=== PATIENT | female | born 1945 | race Caucasian/White ===

== ENCOUNTER 2019-09-29 00:52 | Inpatient (IN) | payer MEDICARE ==
[2019-09-29 01:43] LABS: ABSOLUTE EOSINOPHILS # (AUTO) 0.3 10^3/uL (0.0-0.6); ABSOLUTE NEUT (AUTO) 4.3 10^3/uL (1.7-8.2); TOTAL CELLS COUNTED % (AUTO) 100 %; WHITE BLOOD COUNT 6.3 10^3/uL (4.0-10.5)
[2019-09-29 01:48] LABS: ABSOLUTE LYMPHOCYTES (AUTO) 0.9 10^3/uL (0.5-4.7); ABSOLUTE MONOCYTES (AUTO) 0.7 10^3/uL (0.1-1.4); BASOPHILS % (AUTO) 0.6 % (0-2); EOSINOPHILS % (AUTO) 5.5 % (0-6); HEMATOCRIT 34.6 % (36.0-47.0); HEMOGLOBIN 11.7 g/dL (12.0-15.5); LYMPHOCYTES % (AUTO) 14.3 % (13-45); MEAN CORPUSCULAR HEMOGLOBIN 27.1 pg (27.0-33.4); MEAN CORPUSCULAR HGB CONC 33.9 g/dL (32.0-36.0); MEAN CORPUSCULAR VOLUME 80 fl (80-97); MONOCYTES % (AUTO) 11.8 % (3-13); RED BLOOD COUNT 4.32 10^6/uL (3.72-5.28); RED CELL DISTRIBUTION WIDTH 14.4 % (11.5-14.0); SEGMENTED NEUTROPHILS % (AUTO) 67.8 % (42-78)
[2019-09-29 01:51] LABS: ALKALINE PHOSPHATASE 69 U/L (38-126); ANION GAP 9 (5-19); ASPARTATE AMINO TRANSFERASE 39 U/L (14-36); BILIRUBIN,DIRECT 0.2 mg/dL (0.0-0.4); BILIRUBIN,TOTAL 0.6 mg/dL (0.2-1.3); BLOOD UREA NITROGEN 13 mg/dL (7-20); CALCIUM 9.6 mg/dL (8.4-10.2); CARBON DIOXIDE 24 mmol/L (22-30); CHLORIDE 106 mmol/L (98-107); CREATINE KINASE 39 U/L (30-135); GLUCOSE 123 mg/dL (75-110); POTASSIUM 3.8 mmol/L (3.6-5.0); TOTAL PROTEIN 6.9 g/dL (6.3-8.2)
--- NOTE | 2019-09-29 02:03 | ER Document Report ---
ED General - General Chief Complaint: Irregular Pulse Stated Complaint: CHEST PAIN TRAVEL OUTSIDE OF THE [place] IN LAST 30 DAYS: No - HPI Onset/Duration: Sudden Quality of pain: Achy Severity: Moderate Pain Level: 4 Context: 74 year old female with h/o htn, hld, hypothyroidism and multiple cerebral anneursyms for which she has been treated with coils at [place] is here via EMS after waking up at 2345 with chest pain and sweating and feeling her heart racing. No fever or chills. No recent illness. Chest hurt in center and right chest and right shoulder/ arm was hurting. She was found to be in a fib by ems and they administered cardizem and aspirin en route to the ed. She tells me she has no further chest pain and feels better. Associated symptoms: None Exacerbated by: Denies Relieved by: Denies - Related Data Allergies/Adverse Reactions: Penicillins Allergy (Verified 09/29/19 01:41) Sulfa (Sulfonamide Antibiotics) Allergy (Verified 09/29/19 01:41) vancomycin Allergy (Verified 09/29/19 06:52) Home Medications: AMLODIPINE. METOPROPOL. SYNTHROID. LIVALO. RANITIDINE. BRILINTA Past Medical History - Social History Smoking Status: Former Smoker Family History: Reviewed & Not Pertinent Patient has suicidal ideation: No Patient has homicidal ideation: No - Past Medical History Cardiac Medical History: Reports: Hx Hypercholesterolemia, Hx Hypertension Past Surgical History: Reports: Hx Neurologic Surgery Review of Systems - Review of Systems Constitutional: No symptoms reported EENT: No symptoms reported Cardiovascular: See HPI Respiratory: See HPI Gastrointestinal: No symptoms reported Genitourinary: No symptoms reported Female Genitourinary: No symptoms reported Musculoskeletal: No symptoms reported Skin: No symptoms reported Hematologic/Lymphatic: No symptoms reported Neurological/Psychological: No symptoms reported Physical Exam - Vital signs Vitals: Pulse Ox 94 09/29/19 00:55 Interpretation: Normal - General General appearance: Appears well, Alert - HEENT Head: Normocephalic, Atraumatic Eyes: Normal Pupils: PERRL - Respiratory Respiratory status: No respiratory distress Chest status: Nontender Breath sounds: Normal Chest palpation: Normal - Cardiovascular Rhythm: Irregularly irregular Heart sounds: Normal auscultation Murmur: No - Abdominal Inspection: Normal Distension: No distension Bowel sounds: Normal Tenderness: Nontender Organomegaly: No organomegaly - Back Back: Normal, Nontender - Extremities General upper extremity: Normal inspection, Nontender, Normal color, Normal ROM, Normal temperature General lower extremity: Normal inspection, Nontender, Normal color, Normal ROM, Normal temperature, Normal weight bearing. No: Jamila's sign - Neurological Neuro grossly intact: Yes Cognition: Normal Orientation: AAOx4 Wade Coma Scale Eye Opening: Spontaneous Case Coma Scale Verbal: Oriented Wade Coma Scale Motor: Obeys Commands Wade Coma Scale Total: 15 Speech: Normal Motor strength normal: LUE, RUE, LLE, RLE Sensory: Normal - Psychological Associated symptoms: Normal affect, Normal mood - Skin Skin Temperature: Warm Skin Moisture: Dry Skin Color: Normal Course - Re-evaluation Re-evalutation: 09/29/19 05:14 MDM 74 year old with new onset A fib. She is from [facility] and has worn 30 day event monitor previously with no arrthymia detected. - Vital Signs Vital signs: Temp Pulse Resp BP Pulse Ox 97.4 F 66 16 125/58 L 95 09/30/19 11:34 09/30/19 11:34 09/30/19 11:34 09/30/19 08:41 09/30/19 11:34 - Laboratory Result Diagrams: 09/30/19 05:17 09/30/19 05:17 Laboratory results interpreted by me: 09/29/19 09/29/19 09/29/19 01:15 01:15 01:15 Hgb 11.7 L Hct 34.6 L RDW 14.4 H Glucose 123 H AST 39 H TSH 0.03 L - EKG Interpretation by Me Rate: Tachycardia - A fib RVR [address] elevation or depression repol ab my interpretation. Rhythm: A.Fib Critical Care Note - Critical Care Note Total time excluding time spent on procedures (mins): 30 Discharge - Discharge Clinical Impression: Atrial fibrillation by electrocardiogram, Atrial fibrillation with rapid ventricular response Condition: Fair Disposition: ADMITTED INPATIENT Admitting Provider: Leon (Hospitalist) Unit Admitted: [facility]
[2019-09-29 02:06] LABS: TROPONIN I < 0.012 ng/mL
[2019-09-29 02:09] LABS: PLATELET COUNT 193 10^3/uL (150-450)
[2019-09-29] MEDS ORDERED: METOPROLOL TARTRATE PF/INJ 5 MG/5 ML SDV IV ONE (05:11)
[2019-09-29] MEDS ORDERED: ACETAMINOPHEN 325 MG TABLET PO PRN (05:12)
[2019-09-29] MEDS ORDERED: MAG HYDROX/AL HYDROX/SIMETH SUSP 30 ML UDCUP PO PRN (05:12)
[2019-09-29] MEDS ORDERED: NORMAL SALINE 1000 ML 1,000 ML IV ONE (05:14)
[2019-09-29] MEDS ORDERED: CARVEDILOL 6.25 MG TABLET PO SCH (05:15)
--- NOTE | 2019-09-29 05:48 | PDOC H&P ---
History of Present Illness Patient complains of: Palpitations History of Present Illness: LILLI HARRIS is a 74 year old female with a past medical history of hypertension, dyslipidemia, hypothyroidism and cerebral aneurysm status post coiling procedure at [address] 1 month ago. Patient presents 30 minutes after awakening with the onset of chest pain and palpitations. In the emergency room she is found to be in A. fib with RVR in the 150s. She receives Cardizem and aspirin with good response and referred to the hospitalist for admission. Work- up reveals a TSH of 0.03. She admits recent adjustment of her Synthroid from 88 mcg to 112 mcg approximately a month ago. She does admit multiple episodes of palpitations in the past and work-up was unremarkable despite event monitor. She is currently pain-free Past Medical History Cardiac Medical History: Reports: Hyperlipidema, Hypertension Past Surgical History Past Surgical History: Reports: Other - Cerebral aneurysm coiling Social History Information Source: Patient Lives with: Family Smoking Status: Former Smoker Electronic Cigarette use?: No Frequency of Alcohol Use: Rare Drugs: None - Advance Directive Resuscitation Status: Full Code Family History Family History: Hypertension Parental Family History Reviewed: Yes Children Family History Reviewed: Yes Sibling(s) Family History Reviewed.: Yes Medication/Allergy Home Medications: Amlodipine Besylate [Norvasc 5 mg Tablet] 5 mg PO DAILY 09/29/19 Levothyroxine Sodium [Synthroid 0.112 mg Tablet] 112 mcg PO DAILY 09/29/19 Metoprolol Succinate [Toprol Xl 25 mg Tab.sr] 25 mg PO DAILY 09/29/19 Pitavastatin Calcium [Livalo] 1 mg PO DAILY 09/29/19 Ranitidine HCl 300 mg PO QHS 09/29/19 Ticagrelor [Brilinta 90 mg Tablet] 1 tab PO BID 09/29/19 Allergies/Adverse Reactions: Penicillins Allergy (Verified 09/29/19 01:41) Sulfa (Sulfonamide Antibiotics) Allergy (Verified 09/29/19 01:41) Review of Systems Constitutional: ABSENT: chills, fever(s), headache(s), weight gain, weight loss Eyes: ABSENT: visual disturbances Ears: ABSENT: hearing changes Cardiovascular: PRESENT: as per HPI, palpitations. ABSENT: chest pain, dyspnea on exertion, edema, orthropnea Respiratory: ABSENT: cough, hemoptysis Gastrointestinal: ABSENT: abdominal pain, constipation, diarrhea, hematemesis, hematochezia, nausea, vomiting Genitourinary: ABSENT: dysuria, hematuria Musculoskeletal: ABSENT: joint swelling Integumentary: ABSENT: rash, wounds Neurological: ABSENT: abnormal gait, abnormal speech, confusion, dizziness, focal weakness, syncope Psychiatric: ABSENT: anxiety, depression, homidical ideation, suicidal ideation Endocrine: ABSENT: cold intolerance, heat intolerance, polydipsia, polyuria Hematologic/Lymphatic: ABSENT: easy bleeding, easy bruising Physical Exam Vital Signs: Temp Pulse Resp BP Pulse Ox 97.7 F 14 112/64 94 09/29/19 01:03 09/29/19 03:00 09/29/19 03:00 09/29/19 03:00 Intake & Output 09/27/19 09/28/19 09/29/19 11:59 11:59 11:59 Weight 67.132 kg General appearance: PRESENT: no acute distress, cooperative, well-developed, well-nourished Head exam: PRESENT: atraumatic, normocephalic Eye exam: PRESENT: conjunctiva pink, EOMI, PERRLA. ABSENT: scleral icterus Ear exam: PRESENT: normal external ear exam Mouth exam: PRESENT: moist, tongue midline Neck exam: ABSENT: carotid bruit, JVD, lymphadenopathy, thyromegaly Respiratory exam: PRESENT: clear to auscultation rivera. ABSENT: rales, rhonchi, wheezes Cardiovascular exam: PRESENT: irregular rhythm, tachycardia. ABSENT: diastolic murmur, rubs, systolic murmur Pulses: PRESENT: normal dorsalis pedis pul Vascular exam: PRESENT: normal capillary refill GI/Abdominal exam: PRESENT: normal bowel sounds, soft. ABSENT: distended, guarding, mass, organolmegaly, rebound, tenderness Rectal exam: PRESENT: deferred Extremities exam: PRESENT: full ROM. ABSENT: calf tenderness, clubbing, pedal edema Neurological exam: PRESENT: alert, awake, oriented to person, oriented to place, oriented to time, oriented to situation, CN II-XII grossly intact. ABSENT: motor sensory deficit Psychiatric exam: PRESENT: appropriate affect, normal mood. ABSENT: homicidal ideation, suicidal ideation Skin exam: PRESENT: dry, intact, warm. ABSENT: cyanosis, rash Results Laboratory Results: 09/29/19 01:15 09/29/19 01:15 09/29/19 09/29/19 09/29/19 01:15 01:15 01:15 WBC 6.3 RBC 4.32 Hgb 11.7 L Hct 34.6 L MCV 80 MCH 27.1 MCHC 33.9 RDW 14.4 H Plt Count 193 Seg Neutrophils % 67.8 Sodium 138.7 Cancelled Potassium 3.8 Cancelled Chloride 106 Cancelled Carbon Dioxide 24 Cancelled Anion Gap 9 Cancelled BUN 13 Cancelled Creatinine 0.63 Cancelled Est GFR ( Amer) > 60 Cancelled Est GFR (Non-Af Amer) Cancelled Glucose 123 H Cancelled Calcium 9.6 Cancelled Magnesium 2.0 Total Bilirubin 0.6 Cancelled AST 39 H Cancelled Alkaline Phosphatase 69 Cancelled Total Protein 6.9 Cancelled Albumin 4.0 Cancelled TSH 09/29/19 01:15 WBC RBC Hgb Hct MCV MCH MCHC RDW Plt Count Seg Neutrophils % Sodium Potassium Chloride Carbon Dioxide Anion Gap BUN Creatinine Est GFR ( Amer) Est GFR (Non-Af Amer) Glucose Calcium Magnesium Total Bilirubin AST Alkaline Phosphatase Total Protein Albumin TSH 0.03 L 09/29/19 09/29/19 09/29/19 01:15 01:15 04:59 Creatine Kinase 39 CK-MB (CK-2) 0.50 Troponin I < 0.012 < 0.012 Assessment and Plan - Diagnosis (1) Hyperthyroidism Is this a current diagnosis for this admission?: Yes Plan: Iatrogenic, Synthroid discontinuation, IV Lopressor as needed Coreg scheduled. Consider resumption of Synthroid at 88 mcg post discharge (2) Atrial fibrillation with rapid ventricular response Is this a current diagnosis for this admission?: Yes Plan: Lovenox, Lopressor, scheduled Coreg (3) Leg edema, left Is this a current diagnosis for this admission?: Yes Plan: Follow-up Doppler left leg eval for DVT - Time Time Spent with patient: 25-34 minutes - Inpatient Certification Medical Necessity: Need Close Monitoring Due to Risk of Patient Decompensation
[2019-09-29] MEDS: ENOXAPARIN SODIUM INJ 80 MG/0.8 ML DISP.SYRIN SUBCUT SCH ×2 (06:57→17:22)
[2019-09-29] MEDS ORDERED: INFLUENZA QUAD (6MOS+) 2019-20 VAC 0.5 ML SYR IM ONE (08:18)
[2019-09-29] MEDS: CARVEDILOL 6.25 MG TABLET PO SCH ×2 (09:35→21:24)
[2019-09-29] MEDS: DOCUSATE SODIUM 100 MG CAPSULE PO SCH ×2 (09:35→17:22)
[2019-09-29] MEDS: TICAGRELOR 90 MG TABLET PO SCH ×2 (09:59→17:15)
--- NOTE | 2019-09-29 11:13 | RADIOLOGY REPORT (SQ) ---
EXAM DESCRIPTION: XR CHEST 1 VIEW COMPLETED DATE/TME: CLINICAL HISTORY: 74 years, Female, CHEST PAIN COMPARISON: None. NUMBER OF VIEWS: One TECHNIQUE: AP view the chest LIMITATIONS: None. FINDINGS: The lungs are clear. The heart is normal in size. There is mild elevation of the right hemidiaphragm. There is no acute fracture. There is no pneumothorax or pleural effusion. IMPRESSION: No acute cardiopulmonary abnormality copyright 2010 [employer]- All Rights Reserved
[2019-09-29] MEDS ORDERED: NORMAL SALINE 1000 ML 1,000 ML IV PRN (17:22)
[2019-09-29] MEDS ORDERED: ATORVASTATIN CALCIUM 10 MG TABLET PO SCH (22:00)
[2019-09-29] MEDS ORDERED: FAMOTIDINE 20 MG TABLET PO SCH (22:00)
--- NOTE | 2019-09-29 23:37 | EKG REPORT ---
SEVERITY:- ABNORMAL ECG - ATRIAL FIBRILLATION, V-RATE 65-86 BORDERLINE LEFT AXIS DEVIATION ANTERIOR INFARCT, AGE INDETERMINATE : Confirmed by: Jaden Contreras 29-Sep-2019 23:36:33
--- NOTE | 2019-09-29 23:37 | EKG REPORT ---
SEVERITY:- ABNORMAL ECG - ATRIAL FIBRILLATION, V-RATE 67-142 PROBABLE INFERIOR INFARCT, OLD ANTERIOR INFARCT, OLD : Confirmed by: Jaden Contreras 29-Sep-2019 23:36:24
[2019-09-30] MEDS: ENOXAPARIN SODIUM INJ 80 MG/0.8 ML DISP.SYRIN SUBCUT SCH (05:40)
[2019-09-30 05:50] LABS: ABSOLUTE EOSINOPHILS # (AUTO) 0.3 10^3/uL (0.0-0.6); ABSOLUTE LYMPHOCYTES (AUTO) 0.6 10^3/uL (0.5-4.7); ABSOLUTE MONOCYTES (AUTO) 0.4 10^3/uL (0.1-1.4); ABSOLUTE NEUT (AUTO) 2.5 10^3/uL (1.7-8.2); BASOPHILS % (AUTO) 0.5 % (0-2); EOSINOPHILS % (AUTO) 6.7 % (0-6); HEMATOCRIT 30.6 % (36.0-47.0); HEMOGLOBIN 10.5 g/dL (12.0-15.5); LYMPHOCYTES % (AUTO) 16.8 % (13-45); MEAN CORPUSCULAR HEMOGLOBIN 27.5 pg (27.0-33.4); MEAN CORPUSCULAR HGB CONC 34.5 g/dL (32.0-36.0); MEAN CORPUSCULAR VOLUME 80 fl (80-97); MONOCYTES % (AUTO) 10.4 % (3-13); PLATELET COUNT 155 10^3/uL (150-450); RED BLOOD COUNT 3.83 10^6/uL (3.72-5.28); RED CELL DISTRIBUTION WIDTH 14.5 % (11.5-14.0); SEGMENTED NEUTROPHILS % (AUTO) 65.6 % (42-78); TOTAL CELLS COUNTED % (AUTO) 100 %; WHITE BLOOD COUNT 3.7 10^3/uL (4.0-10.5)
[2019-09-30 06:12] LABS: ANION GAP 7 (5-19); BLOOD UREA NITROGEN 9 mg/dL (7-20); CALCIUM 8.9 mg/dL (8.4-10.2); CARBON DIOXIDE 22 mmol/L (22-30); CHLORIDE 110 mmol/L (98-107); GLUCOSE 112 mg/dL (75-110)
--- NOTE | 2019-09-30 07:30 | XCELERA REPORT ---
[address] [place] [facility] [address] Lower Extremity Venous Evaluation Procedure: Color flow and duplex imaging of the veins of the left lower extremity as well as the right Common Femoral vein. Right Sided Venous Evaluation The right common femoral vein is fully compressible. Spontaneous and phasic flow is present in the right common femoral vein. Left Sided Venous Evaluation Normal vessel filling wall to wall, compression and augmentation as well as Colour flow down to the infrageniculate veins. Interpretation Summary No duplex evidence of DVT or obstruction in the left lower extremity nor in the right Common Femoral vein. Name: LILLI HARRIS Age: 74 yrs Gender: Female : 1945 Patient Status: Inpatient Patient Location: [address] [place] [address] Study Date: 09/29/2019 03:13 PM Reason For Study: left leg edema Ordering Physician: JACQUELINE VASQUES Performed By: Mary Ellen Rojas : JACQUELINE VASQUES > Sonido Gomez
[2019-09-30 08:42] VITALS: BP 125/58
[2019-09-30] MEDS: TICAGRELOR 90 MG TABLET PO SCH (09:52)
[2019-09-30] MEDS: DOCUSATE SODIUM 100 MG CAPSULE PO SCH (09:53)
[2019-09-30] MEDS: CARVEDILOL 6.25 MG TABLET PO SCH (09:54)
--- NOTE | 2019-09-30 18:14 | PDOC DISCHARGE SUMMARY ---
Impression - Admit/DC Date/PCP Admission Date/Primary Care Provider: 09/29/19 05:31 Discharge Date: 09/30/19 - Additional Information Resuscitation Status: Full Code Discharge Diet: Regular Referrals: IMTIAZ PIZARRO MD [ACTIVE STAFF] - MYKEL CASTRO MD [ACTIVE STAFF] - 10/11/19 2:45 pm Prescriptions: Metoprolol Tartrate [Lopressor 25 mg Tablet] 25 mg PO Q12 #60 tab Levothyroxine Sodium [Synthroid 0.025 mg Tablet] 25 mcg PO QAM #30 tablet Rivaroxaban [Xarelto 15 mg Tablet] 15 mg PO QHS #30 tablet Home Medications: Amlodipine Besylate [Norvasc 5 mg Tablet] 5 mg PO DAILY 09/29/19 Cholecalciferol (Vitamin D3) [Vitamin D3 1000 Unit Tablet] 1,000 unit PO DAILY 09/29/19 Cyanocobalamin (Vitamin B-12) [Vitamin B-12 1000 mcg Tablet] 1,000 mcg PO DAILY 09/29/19 Pitavastatin Calcium [Livalo] 1 mg PO DAILY 09/29/19 Ranitidine HCl 300 mg PO QHS 09/29/19 Ticagrelor [Brilinta 90 mg Tablet] 60 mg PO Q12 09/29/19 Vitamin B Complex [B Complex] 1 each PO DAILY 09/29/19 Levothyroxine Sodium [Synthroid 0.025 mg Tablet] 25 mcg PO QAM #30 tablet 09/30/19 Metoprolol Tartrate [Lopressor 25 mg Tablet] 25 mg PO Q12 #60 tab 09/30/19 Rivaroxaban [Xarelto 15 mg Tablet] 15 mg PO QHS #30 tablet 09/30/19 History of Present Illiness History of Present Illness: Admitting hospitalist's H&P: LILLI HARRIS is a 74 year old female with a past medical history of hypertension, dyslipidemia, hypothyroidism and cerebral aneurysm status post coiling procedure at [place] 1 month ago. Patient presents 30 minutes after awakening with the onset of chest pain and palpitations. In the emergency room she is found to be in A. fib with RVR in the 150s. She receives Cardizem and as pirin with good response and referred to the hospitalist for admission. Work-up reveals a TSH of 0.03. She admits recent adjustment of her Synthroid from 88 mcg to 112 mcg approximately a month ago. She does admit multiple episodes of palpitations in the past and work-up was unremarkable despite event monitor. She is currently pain-free. Hospital Course Hospital Course: This is a 74-year-old female who was admitted due to A. fib with RVR. She was given IV Lopressor and was also started on beta-blockers. She was also started on therapeutic Lovenox. She spontaneously converted to normal sinus rhythm. She reports she has been on Synthroid on 112 mcg daily for hypothyroidism. She says she was previously on 88 mcg. Her work-up was otherwise unremarkable aside from a TSH 0.03. Discussed with her neurosurgeon at [place], Dr. Fernando Hicks as she was started on aspirin and Brilinta after she had coiling done for cerebral aneurysms at [place]. She does need to be started on either Coumadin or NOAC for her A. fib. Discussed in length the risks and benefits of starting either Coumadin or a NOAC. Patient prefers to be started on Xarelto. Neurosurgery recommends discontinuing her aspirin and continuing her Brilinta and be started on Xarelto. Lovenox was switched to Xarelto. Her Synthroid was decreased to 25 mcg daily. She will follow-up with her PCP for a repeat thyroid panel in 1 to 2 weeks. She will closely follow with her PCP and was also given an appointment with Dr. Winkler. Physical Exam Vital Signs: Temp Pulse Resp BP Pulse Ox 97.4 F 66 16 125/58 L 95 09/30/19 11:34 09/30/19 11:34 09/30/19 11:34 09/30/19 08:41 09/30/19 11:34 Intake & Output 09/29/19 09/30/19 10/01/19 06:59 06:59 06:59 Intake Total 880 Balance 880 Weight 148 lb 147 lb 14.883 oz General appearance: PRESENT: no acute distress, well-developed, well-nourished Head exam: PRESENT: atraumatic, normocephalic Eye exam: PRESENT: conjunctiva pink, EOMI, PERRLA. ABSENT: scleral icterus Ear exam: PRESENT: normal external ear exam Mouth exam: PRESENT: moist, tongue midline Neck exam: ABSENT: carotid bruit, JVD, lymphadenopathy, thyromegaly Respiratory exam: PRESENT: clear to auscultation rivera. ABSENT: rales, rhonchi, wheezes Cardiovascular exam: PRESENT: RRR. ABSENT: diastolic murmur, rubs, systolic murmur Pulses: PRESENT: normal dorsalis pedis pul GI/Abdominal exam: PRESENT: normal bowel sounds, soft. ABSENT: distended, guarding, mass, organolmegaly, rebound, tenderness Rectal exam: PRESENT: deferred Extremities exam: PRESENT: full ROM. ABSENT: calf tenderness, clubbing, pedal edema Neurological exam: PRESENT: alert, awake, oriented to person, oriented to place, oriented to time, oriented to situation, CN II-XII grossly intact. ABSENT: motor sensory deficit Results Laboratory Results: WBC 3.7 10^3/uL (4.0-10.5) L 09/30/19 05:17 RBC 3.83 10^6/uL (3.72-5.28) 09/30/19 05:17 Hgb 10.5 g/dL (12.0-15.5) L 09/30/19 05:17 Hct 30.6 % (36.0-47.0) L 09/30/19 05:17 MCV 80 fl (80-97) 09/30/19 05:17 MCH 27.5 pg (27.0-33.4) 09/30/19 05:17 MCHC 34.5 g/dL (32.0-36.0) 09/30/19 05:17 RDW 14.5 % (11.5-14.0) H 09/30/19 05:17 Plt Count 155 10^3/uL (150-450) 09/30/19 05:17 Lymph % (Auto) 16.8 % (13-45) 09/30/19 05:17 Collier % (Auto) 10.4 % (3-13) 09/30/19 05:17 Eos % (Auto) 6.7 % (0-6) H 09/30/19 05:17 Baso % (Auto) 0.5 % (0-2) 09/30/19 05:17 Absolute Neuts (auto) 2.5 10^3/uL (1.7-8.2) 09/30/19 05:17 Absolute Lymphs (auto) 0.6 10^3/uL (0.5-4.7) 09/30/19 05:17 Absolute Monos (auto) 0.4 10^3/uL (0.1-1.4) 09/30/19 05:17 Absolute Eos (auto) 0.3 10^3/uL (0.0-0.6) 09/30/19 05:17 Absolute Basos (auto) 0.0 10^3/uL (0.0-0.2) 09/30/19 05:17 Seg Neutrophils % 65.6 % (42-78) 09/30/19 05:17 Sodium 138.7 mmol/L (137-145) 09/30/19 05:17 Potassium 4.0 mmol/L (3.6-5.0) 09/30/19 05:17 Chloride 110 mmol/L (98-107) H 09/30/19 05:17 Carbon Dioxide 22 mmol/L (22-30) 09/30/19 05:17 Anion Gap 7 (5-19) 09/30/19 05:17 BUN 9 mg/dL (7-20) 09/30/19 05:17 Creatinine 0.69 mg/dL (0.52-1.25) 09/30/19 05:17 Est GFR ( Amer) > 60 (>60) 09/30/19 05:17 Est GFR (Non-Af Amer) Cancelled 09/29/19 01:15 Est GFR (MDRD) Non-Af > 60 (>60) 09/30/19 05:17 Glucose 112 mg/dL (75-110) H 09/30/19 05:17 Calcium 8.9 mg/dL (8.4-10.2) 09/30/19 05:17 Magnesium 2.0 mg/dL (1.6-2.3) 09/29/19 01:15 Total Bilirubin 0.6 mg/dL (0.2-1.3) 09/29/19 01:15 Total Bilirubin Cancelled 09/29/19 01:15 Direct Bilirubin 0.2 mg/dL (0.0-0.4) 09/29/19 01:15 Direct Bilirubin Cancelled 09/29/19 01:15 Neonat Total Bilirubin Cancelled 09/29/19 01:15 Neonat Total Bilirubin Not Reportable 09/29/19 01:15 Neonat Direct Bilirubin Cancelled 09/29/19 01:15 Neonat Direct Bilirubin Not Reportable 09/29/19 01:15 Neonat Indirect Bili Cancelled 09/29/19 01:15 Neonat Indirect Bili Not Reportable 09/29/19 01:15 AST 39 U/L (14-36) H 09/29/19 01:15 AST Cancelled 09/29/19 01:15 ALT 15 U/L (<35) 09/29/19 01:15 ALT Cancelled 09/29/19 01:15 Alkaline Phosphatase 69 U/L (38-126) 09/29/19 01:15 Alkaline Phosphatase Cancelled 09/29/19 01:15 Creatine Kinase 39 U/L (30-135) 09/29/19 01:15 CK-MB (CK-2) 0.50 ng/mL (<4.55) 09/29/19 01:15 Troponin I < 0.012 ng/mL 09/29/19 04:59 Total Protein 6.9 g/dL (6.3-8.2) 09/29/19 01:15 Total Protein Cancelled 09/29/19 01:15 Albumin 4.0 g/dL (3.5-5.0) 09/29/19 01:15 Albumin Cancelled 09/29/19 01:15 EGFR Cancelled 09/29/19 01:15 TSH 0.03 uIU/mL (0.47-4.68) L 09/29/19 01:15 Free T4 1.60 ng/dL (0.78-2.19) 09/29/19 04:59 Free T3 pg/mL 4.18 pg/mL (2.77-5.27) 09/29/19 04:59 09/29/19 09/29/19 01:15 04:59 CK-MB (CK-2) 0.50 Troponin I < 0.012 < 0.012 Impressions: Chest X-Ray 09/29/19 01:57 IMPRESSION: No acute cardiopulmonary abnormality copyright 2011 [employer]- All Rights Reserved Stroke Is this a Stroke Patient?: No Acute Heart Failure - Is this a Heart Failure Patient?: No
--- NOTE | 2019-09-30 22:37 | EKG REPORT ---
SEVERITY:- ABNORMAL ECG - SINUS RHYTHM BORDERLINE LEFT AXIS DEVIATION CONSIDER ANTEROSEPTAL INFARCT : Confirmed by: Jaden Contreras 30-Sep-2019 22:37:13
== END 2019-09-30 12:17 | disposition home or self-care (01) | DRG 310 ==
LOC: ER 00:52 → EH 05:31 → 3W 06:52
PROVIDERS: ADMIT Internal Medicine; ATTEND Internal Medicine
PROC: 3E0234Z Introduction of Serum, Toxoid and Vaccine into Muscle, Percutaneous Approach (ICD-10-PCS; principal; 2019-09-30)
DX: I48.91 Unspecified atrial fibrillation (principal); I67.1 Cerebral aneurysm, nonruptured; R07.9 Chest pain, unspecified; I10 Essential (primary) hypertension; E03.9 Hypothyroidism, unspecified; Z23 Encounter for immunization
CPT/HCPCS: 36415; 71045; 80048; 80053; 82550; 82553; 83735; 84439; 84443; 84481; 84484; 85025; 90686; 93005; 93010; 93971; 99291; J1650; J3490; J7030

== ENCOUNTER → 2020-06-19 | Outpatient (CLI) | payer MEDICARE ==
--- NOTE | 2020-06-21 15:20 | WOMENS IMAGING REPORT ---
EXAM DESCRIPTION: 3D SCREENING MAMMO BILAT IMAGES COMPLETED DATE/TIME: 06/21/2020 11:39 am REASON FOR STUDY: Z12.31 ENCNTR SCREEN MAMMOGRAM FOR MALIGNANT NEOPLASM OF BREAST Z12.31 ENCNTR SCR EEN MAMMOGRAM FOR MALIGNANT NEOPLASM OF SUHAIL COMPARISON: 12/31/2016 and 12/01/2014 EXAM PARAMETERS: Standard craniocaudal and mediolateral oblique views of each breast recorded using digital acquisition and breast tomosynthesis. Read with the assistance of CAD. .[facility] - [employer] Version 9.2 LIMITATIONS: None. FINDINGS: RIGHT BREAST MASSES: No suspicious masses. CALCIFICATIONS: No new or suspicious calcifications. ARCHITECTURAL DISTORTION: None. ASYMMETRY: None noted. OTHER: No other significant findings. LEFT BREAST MASSES: No suspicious masses. CALCIFICATIONS: No new or suspicious calcifications. ARCHITECTURAL DISTORTION: None. ASYMMETRY: There is a partially circumscribed focal asymmetry involving the left inner upper quadrant , adjacent to but separate from a marked skin lesion. This is not convincingly seen on comparison im aging. This is best visualized on tomographic CC image 17 and tomographic MLO image 21. OTHER: No other significant findings. IMPRESSION: Developing asymmetry within the left upper inner quadrant. 0 Incomplete: Needs Additional Imaging Evaluation and/or prior Mammograms for Comparison. BREAST DENSITY: b. There are scattered areas of fibroglandular density. BIRAD: ASSESSMENT: 0 Incomplete: Needs Additional Imaging Evaluation and/or prior Mammograms for C omparison. RECOMMENDATION: RECOMMENDED FOLLOW-UP: Recommend spot compression of the left upper inner quadrant. Additional imaging at the interpreting radiologist's discretion. The patient will be contacted for additional imaging. COMMENT: The patient has been notified of the results by letter per MQSA requirements. Additional no tification policies are in place for contacting patient with suspicious or incomplete findings. Quality ID #[id number]: The [employer] recommends an annual screening mammogram for women aged 40 years or over. This facility utilizes a reminder system to ensure that all patients receive reminder letters, and/or direct phone calls for appointments. This includes reminders for routine scr eening mammograms, diagnostic mammograms, or other Breast Imaging Interventions when appropriate. Th is patient will be placed in the appropriate reminder system. TECHNICAL DOCUMENTATION: FINDING NUMBER: (1) ASSESSMENT: (1) JOB ID: [id number] 2010 [employer]- All Rights Reserved Reading location - IP/workstation name: [email or web address]
== END ==
LOC: WI 07:43
PROVIDERS: ATTEND Physician Assistant
DX: Z12.31 Encounter for screening mammogram for malignant neoplasm of breast (principal)
CPT/HCPCS: 77063; 77067

== ENCOUNTER → 2020-08-10 | Outpatient (CLI) | payer MEDICARE ==
--- NOTE | 2020-08-10 12:34 | RADIOLOGY REPORT (SQ) ---
EXAM DESCRIPTION: HIP RIGHT AP/LATERAL IMAGES COMPLETED DATE/TIME: 08/10/2020 11:55 am REASON FOR STUDY: RT HIP PAIN M25.561 PAIN IN RIGHT KNEE COMPARISON: None. NUMBER OF VIEWS: Two views. TECHNIQUE: AP pelvis and additional frog legview of the right hip. LIMITATIONS: None. FINDINGS: MINERALIZATION: Normal. RIGHT HIP: No fracture or dislocation. No worrisome bone lesions. LEFT HIP: No fracture or dislocation. No worrisome bone lesions. Limited views. PUBIS AND ISCHIUM: No fracture. PELVIS: No fracture. SACRUM: No fracture or dislocation. No worrisome bone lesions. LOWER LUMBAR SPINE: No fracture or dislocation. No worrisome bone lesions. No significant disc disea se. SOFT TISSUES: No findings. OTHER: No other significant finding. IMPRESSION: NEGATIVE STUDY OF THE RIGHT HIP. NO RADIOGRAPHIC EVIDENCE OF ACUTE INJURY. TECHNICAL DOCUMENTATION: JOB ID: [id number] 2010 [employer]- All Rights Reserved Reading location - IP/workstation name: [email or web address]
== END ==
LOC: OD 11:43
PROVIDERS: ATTEND Physician Assistant
DX: M25.561 Pain in right knee (principal)

== ENCOUNTER 2020-09-08 09:44 | Emergency (ER) | payer MEDICARE ==
--- NOTE | 2020-09-08 10:41 | RADIOLOGY REPORT (SQ) ---
EXAM DESCRIPTION: CHEST SINGLE VIEW IMAGES COMPLETED DATE/TIME: 09/08/2020 10:25 am REASON FOR STUDY: Chest Pain COMPARISON: 09/29/2019 EXAM PARAMETERS: NUMBER OF VIEWS: One view. TECHNIQUE: Single frontal radiographic view of the chest acquired. RADIATION DOSE: NA LIMITATIONS: None. FINDINGS: LUNGS AND PLEURA: Stable chronic interstitial changes. No focal consolidation, pleural ef fusion or pneumothorax. MEDIASTINUM AND HILAR STRUCTURES: No masses. Contour normal. HEART AND VASCULAR STRUCTURES: Normal heart size. Vascular calcifications. BONES: No acute findings. HARDWARE: None in the chest. OTHER: No other significant finding. IMPRESSION: No evidence of acute cardiopulmonary process. TECHNICAL DOCUMENTATION: JOB ID: [id number] [employer]- All Rights Reserved Reading location - IP/workstation name: [email or web address]
[2020-09-08 10:42] LABS: ABSOLUTE EOSINOPHILS # (AUTO) 0.2 10^3/uL (0.0-0.6); ABSOLUTE LYMPHOCYTES (AUTO) 0.6 10^3/uL (0.5-4.7); ABSOLUTE MONOCYTES (AUTO) 0.6 10^3/uL (0.1-1.4); ABSOLUTE NEUT (AUTO) 3.9 10^3/uL (1.7-8.2); BASOPHILS % (AUTO) 0.5 % (0-2); EOSINOPHILS % (AUTO) 3.3 % (0-6); HEMATOCRIT 33.8 % (36.0-47.0); HEMOGLOBIN 11.6 g/dL (12.0-15.5); MEAN CORPUSCULAR HEMOGLOBIN 26.2 pg (27.0-33.4); MEAN CORPUSCULAR HGB CONC 34.2 g/dL (32.0-36.0); MEAN CORPUSCULAR VOLUME 77 fl (80-97); MONOCYTES % (AUTO) 10.7 % (3-13); PLATELET COUNT 235 10^3/uL (150-450); RED BLOOD COUNT 4.42 10^6/uL (3.72-5.28); RED CELL DISTRIBUTION WIDTH 15.6 % (11.5-14.0); SEGMENTED NEUTROPHILS % (AUTO) 73.5 % (42-78); TOTAL CELLS COUNTED % (AUTO) 100 %; WHITE BLOOD COUNT 5.4 10^3/uL (4.0-10.5)
[2020-09-08 10:46] LABS: PROTHROMBIN TIME 16.4 SEC (11.4-15.4)
[2020-09-08 10:57] LABS: ALBUMIN 4.1 g/dL (3.5-5.0); ALKALINE PHOSPHATASE 64 U/L (38-126); ANION GAP 9 (5-19); ASPARTATE AMINO TRANSFERASE 21 U/L (14-36); BILIRUBIN,DIRECT 0.2 mg/dL (0.0-0.4); BILIRUBIN,TOTAL 0.3 mg/dL (0.2-1.3); BLOOD UREA NITROGEN 14 mg/dL (7-20); CALCIUM 9.5 mg/dL (8.4-10.2); CARBON DIOXIDE 27 mmol/L (22-30); CHLORIDE 103 mmol/L (98-107); CREATINE KINASE 48 U/L (30-135); GLUCOSE 115 mg/dL (75-110); TOTAL PROTEIN 6.7 g/dL (6.3-8.2)
[2020-09-08 11:11] LABS: CREATINE KINASE MB 0.88 ng/mL (<4.55)
[2020-09-08 11:13] LABS: TROPONIN I < 0.012 ng/mL
--- NOTE | 2020-09-08 14:55 | ER Document Report ---
Entered by JOYCE CORTEZ SCRIBE 09/08/20 1223 Acting as scribe for:DARIAN LEIJA MD ED General - General Chief Complaint: Chest Pain Stated Complaint: CHEST PAIN Primary Care Provider: MYKEL CASTRO MD [Primary Care Provider] - Follow up as needed Mode of Arrival: Ambulatory Information source: Patient Notes: This 75 year old female patient with a history of A fib on Xarelto and GERD presents to the ED today with complaints of sternal chest pain which felt like indigestion that started last night. Patient describes the pain as "tight pressure." She states that she woke up this morning diaphoretic and clammy, so she called her farmer and grazier Dr. Winkler this morning who advised her to come to the ED for evaluation. Denies any palpitations or heart racing. She states that her chest pain has resolved at this time. She mentions an episode of diarrhea this morning and x3 bowel last night in succession. No nausea or vomiting. TRAVEL OUTSIDE OF THE [place] IN LAST 30 DAYS: No - Related Data Allergies/Adverse Reactions: Penicillins Allergy (Verified 09/08/20 10:08) Sulfa (Sulfonamide Antibiotics) Allergy (Verified 09/08/20 10:08) vancomycin Allergy (Verified 09/08/20 10:08) Home Medications: Synthroid Past Medical History - General Information source: Patient, [facility] Records - Social History Smoking Status: Unknown if Ever Smoked Cigarette use (# per day): No Chew tobacco use (# tins/day): No Smoking Education Provided: No Family History: Reviewed & Not Pertinent Patient has suicidal ideation: No Patient has homicidal ideation: No - Past Medical History Cardiac Medical History: Reports: Hx Atrial Fibrillation, Hx Hypercholesterolemia, Hx Hypertension Endocrine Medical History: Reports: Hx Hypothyroidism GI Medical History: Reports: Hx Gastroesophageal Reflux Disease Past Surgical History: Reports: Hx Neurologic Surgery - Cerebral aneurysm coiling 04/2019 at [place] Review of Systems - Review of Systems Constitutional: See HPI, Diaphoresis EENT: No symptoms reported Cardiovascular: See HPI, Chest pain. denies: Palpitations, Heart racing Respiratory: No symptoms reported Gastrointestinal: See HPI, Diarrhea, Last bowel movement - 09/07. denies: Nausea, Vomiting Genitourinary: No symptoms reported Female Genitourinary: No symptoms reported Musculoskeletal: No symptoms reported Skin: See HPI, Other - Clammy skin Hematologic/Lymphatic: No symptoms reported Neurological/Psychological: No symptoms reported -: Yes All other systems reviewed and negative Physical Exam - Vital signs Vitals: Temp Pulse Resp BP Pulse Ox 98.4 F 66 18 130/68 H 100 09/08/20 09:53 09/08/20 09:53 09/08/20 09:53 09/08/20 09:53 09/08/20 09:53 Interpretation: Normal - General General appearance: Appears well, Alert In distress: None - HEENT Head: Normocephalic, Atraumatic Eyes: Normal Pupils: PERRL - Respiratory Respiratory status: No respiratory distress Chest status: Nontender Breath sounds: Normal Chest palpation: Normal - Cardiovascular Rhythm: Regular Heart sounds: Normal auscultation, S1 appreciated, S2 appreciated Murmur: No Friction rub: No Gallop: None auscultated - Abdominal Inspection: Normal Distension: No distension Bowel sounds: Normal Tenderness: Nontender - Abdomen soft Organomegaly: No organomegaly - Back Back: Normal, Nontender - Extremities General upper extremity: Normal inspection General lower extremity: Normal inspection. No: Edema - Neurological Neuro grossly intact: Yes Orientation: AAOx4 Jackson Coma Scale Eye Opening: Spontaneous Jackson Coma Scale Verbal: Oriented Case Coma Scale Motor: Obeys Commands Jackson Coma Scale Total: 15 - Psychological Associated symptoms: Normal affect, Normal mood - Skin Skin Temperature: Warm Skin Moisture: Dry Skin Color: Normal Course - Re-evaluation Re-evalutation: 09/08/20 14:50 Patient is pain-free not having any complaints of nausea vomiting shortness of breath or chest pain. - Vital Signs Vital signs: Temp Pulse Resp BP Pulse Ox 98.4 F 60 13 143/72 H 96 09/08/20 09:53 09/08/20 12:00 09/08/20 12:00 09/08/20 12:00 09/08/20 11:00 09/08/20 14:50 Vital signs are stable. - Laboratory Result Diagrams: 09/08/20 10:25 09/08/20 10:25 Laboratory results interpreted by me: 09/08/20 09/08/20 09/08/20 10:25 10:25 10:25 Hgb 11.6 L Hct 33.8 L MCV 77 L MCH 26.2 L RDW 15.6 H Lymph % (Auto) 12.0 L PT 16.4 H Glucose 115 H 09/08/20 14:50 Laboratories within normal limits except blood sugar is 115 hemoglobin 11.6 hematocrit 33.8 09/08/20 14:50 Troponins remain flat at 0.012. - Diagnostic Test Radiology reviewed: Image reviewed, Reports reviewed Radiology results interpreted by me: 09/08/20 14:20 Chest X-Ray 09/08/20 09:58 IMPRESSION: No evidence of acute cardiopulmonary process. 09/08/20 14:51 Chest x-ray shows no evidence of an acute cardiopulmonary process. - EKG Interpretation by Me Additional EKG results interpreted by me: 09/08/20 14:51 Twelve-lead EKG shows a normal sinus rhythm rate of [address] changes to suggest an CT normal HI QRS QT intervals. Left axis deviation old anterior in farct with poor R wave progression in the chest leads. Comparison to prior EKG of 09/30/2019 no change. - Consults Dr. Pizarro Time consulted: 14:39 - Case discussed with Dr. Pizarro patient's personal farmer and grazier and we discussed patient's course in the ED and the results. Patient is being discharged home to follow-up with Dr. Esteves on Friday with his instructions to begin Protonix and a nitroglycerin patch. Continue your same other medications or return to the emergency department or call Dr. Steinberg for any problems. Consulted provider: follow-up in office Discharge - Discharge Clinical Impression: Chest pain, Acid reflux disease Condition: Stable Disposition: HOME, SELF-CARE Instructions: Nitrates ([facility]), Reflux Disease (GERD) ([facility]), Chest Pain of Uncle ar Cause ([facility]) Prescriptions: Nitroglycerin [Nitro-Dur 2.5 mg (0.1 mg/Hr) Transdermal Ptch] 1 each TD QAM #30 patch.td24 Pantoprazole Sodium [Protonix [address] Tablet] 40 mg PO QAM 30 Days #30 tablet. Referrals: MYKEL CASTRO MD [Primary Care Provider] - Follow up as needed IMTIAZ PIZARRO MD [ACTIVE STAFF] - 09/11/20 12:30 pm I personally performed the services described in the documentation, reviewed and edited the documentation which was dictated to the scribe in my presence, and it accurately records my words and actions.
[2020-09-08 15:00] VITALS: BP 140/78
--- NOTE | 2020-09-08 18:00 | EKG REPORT ---
SEVERITY:- ABNORMAL ECG - SINUS RHYTHM BORDERLINE LEFT AXIS DEVIATION ANTERIOR INFARCT, OLD : Confirmed by: Jaden Contreras 08-Sep-2020 17:59:58
== END 2020-09-08 15:06 | disposition home or self-care (01) ==
LOC: ER 09:44
DX: R07.9 Chest pain, unspecified (principal); K21.9 Gastro-esophageal reflux disease without esophagitis; I48.91 Unspecified atrial fibrillation; Z79.01 Long term (current) use of anticoagulants; R61 Generalized hyperhidrosis; R19.7 Diarrhea, unspecified; Z88.0 Allergy status to penicillin; Z88.2 Allergy status to sulfonamides; Z88.1 Allergy status to other antibiotic agents; Z79.899 Other long term (current) drug therapy; I10 Essential (primary) hypertension
CPT/HCPCS: 36415; 71045; 80053; 82550; 82553; 84484; 85025; 85610; 93005; 93010; 99285

== ENCOUNTER → 2020-10-11 | Outpatient (CLI) | payer MEDICARE ==
[2020-10-11 11:56] LABS: ABSOLUTE EOSINOPHILS # (AUTO) 0.3 10^3/uL (0.0-0.6); ABSOLUTE LYMPHOCYTES (AUTO) 0.7 10^3/uL (0.5-4.7); ABSOLUTE MONOCYTES (AUTO) 0.5 10^3/uL (0.1-1.4); ABSOLUTE NEUT (AUTO) 3.5 10^3/uL (1.7-8.2); BASOPHILS % (AUTO) 0.6 % (0-2); EOSINOPHILS % (AUTO) 5.2 % (0-6); HEMATOCRIT 33.7 % (36.0-47.0); HEMOGLOBIN 11.1 g/dL (12.0-15.5); LYMPHOCYTES % (AUTO) 14.4 % (13-45); MEAN CORPUSCULAR VOLUME 76 fl (80-97); MONOCYTES % (AUTO) 9.8 % (3-13); PLATELET COUNT 251 10^3/uL (150-450); RED BLOOD COUNT 4.45 10^6/uL (3.72-5.28); RED CELL DISTRIBUTION WIDTH 15.4 % (11.5-14.0); TOTAL CELLS COUNTED % (AUTO) 100 %
[2020-10-11 12:16] LABS: ALBUMIN 4.4 g/dL (3.5-5.0); ALKALINE PHOSPHATASE 75 U/L (38-126); ANION GAP 9 (5-19); ASPARTATE AMINO TRANSFERASE 24 U/L (14-36); BILIRUBIN,DIRECT 0.1 mg/dL (0.0-0.4); BILIRUBIN,TOTAL 0.5 mg/dL (0.2-1.3); BLOOD UREA NITROGEN 13 mg/dL (7-20); CARBON DIOXIDE 29 mmol/L (22-30); CHLORIDE 101 mmol/L (98-107); GLUCOSE 109 mg/dL (75-110); POTASSIUM 4.4 mmol/L (3.6-5.0); TOTAL PROTEIN 7.1 g/dL (6.3-8.2)
[2020-10-11 12:33] LABS: ERYTHROCYTE SEDIMENTATION RATE 26 mm/hr (0-30)
--- NOTE | 2020-10-12 11:36 | RADIOLOGY REPORT (SQ) ---
EXAM DESCRIPTION: ELBOW RIGHT >2 VIEWS IMAGES COMPLETED DATE/TIME: 10/11/2020 11:31 am REASON FOR STUDY: RT ELBOW PAIN M25.521 PAIN IN RIGHT ELBOW COMPARISON: None. NUMBER OF VIEWS: Four views. TECHNIQUE: AP, lateral, and both oblique radiographic images acquired of the right elbow. LIMITATIONS: None. FINDINGS: MINERALIZATION: Normal. BONES: No acute fracture or dislocation. No worrisome bone lesions. JOINT: No effusion. SOFT TISSUES: No soft tissue swelling. No foreign body. OTHER: No other significant finding. IMPRESSION: NEGATIVE STUDY OF THE RIGHT ELBOW. NO RADIOGRAPHIC EVIDENCE OF ACUTE INJURY. TECHNICAL DOCUMENTATION: JOB ID: [id number] 2010 [employer]- All Rights Reserved Reading location - IP/workstation name: [email or web address]
== END ==
LOC: OD 11:00
PROVIDERS: ATTEND Physician Assistant
DX: M25.521 Pain in right elbow (principal)
CPT/HCPCS: 36415; 80053; 85025; 85652

== ENCOUNTER → 2020-10-11 | Outpatient (CLI) | payer MEDICARE ==
--- NOTE | 2020-10-11 15:14 | RADIOLOGY REPORT (SQ) ---
EXAM DESCRIPTION: VENOUS UNILATERAL UPPER IMAGES COMPLETED DATE/TIME: 10/11/2020 3:04 pm REASON FOR STUDY: RUE SWELLING R22.31 LOCALIZED SWELLING, MASS AND LUMP, RIGHT UPPER LIMB COMPARISON: None. TECHNIQUE: Dynamic and static burnett scale and color images acquired of the right arm venous system. S elected spectral images acquired with additional compression and augmentation maneuvers. The contrala teral subclavian vein and internal jugular vein were also imaged. Images stored on PACS. LIMITATIONS: None. FINDINGS: INTERNAL JUGULAR VEIN: Normal phasicity, compression, augmentation. No visualized echogeni c material on burnett scale. No defects on color images. Comparison opposite side normal. SUBCLAVIAN VEIN: Normal compression, augmentation. No visualized echogenic material on burnett scale. No defects on color images. AXILLARY VEIN: Normal compression, augmentation. No visualized echogenic material on burnett scale. No d efects on color images. BRACHIAL VEIN: Normal compression, augmentation. No visualized echogenic material on burnett scale. No d efects on color images. BASILIC VEIN: Normal compression, augmentation. No visualized echogenic material on burnett scale. No de fects on color images. CEPHALIC VEIN: Normal compression, augmentation. No visualized echogenic material on burnett scale. No d efects on color images. OTHER: No other significant finding. CONTRALATERAL SUBCLAVIAN VEIN AND INTERNAL JUGULAR VEIN: Normal phasicity, compression and augmentation. No visualized echogenic material on burnett scale. No de fects on color images. IMPRESSION: NO EVIDENCE DVT OR SVT RIGHT ARM. TECHNICAL DOCUMENTATION: JOB ID: [id number] 2010 [employer]- All Rights Reserved Reading location - IP/workstation name: [email or web address]
== END ==
LOC: SP 13:43
PROVIDERS: ATTEND Physician Assistant
DX: R22.31 Localized swelling, mass and lump, right upper limb (principal)
CPT/HCPCS: 93971

== ENCOUNTER → 2020-10-13 | Outpatient (CLI) | payer MEDICARE ==
--- NOTE | 2020-10-13 11:45 | RADIOLOGY REPORT (SQ) ---
EXAM DESCRIPTION: HUMERUS RIGHT IMAGES COMPLETED DATE/TIME: 10/13/2020 11:33 am REASON FOR STUDY: R ARM PAIN M79.601 PAIN IN RIGHT ARM COMPARISON: None. NUMBER OF VIEWS: Two views. TECHNIQUE: Two radiographic images were acquired of the right humerus to include elbow and shoulder in at least one projection. LIMITATIONS: None. FINDINGS: MINERALIZATION: Normal. BONES: No acute fracture or dislocation. No worrisome bone lesions. No significant osteophytes. SOFT TISSUES: No obvious swelling or foreign body. OTHER: No other significant finding. IMPRESSION: NEGATIVE STUDY OF THE RIGHT HUMERUS. NO EXPLANATION FOR PAIN. TECHNICAL DOCUMENTATION: JOB ID: [id number] 2010 [employer]- All Rights Reserved Reading location - IP/workstation name: [email or web address]
== END ==
LOC: RAD 11:13
PROVIDERS: ATTEND Family Medicine
DX: M79.601 Pain in right arm (principal)